=== PATIENT | male | born 2000 | race Hispanic/Latino ===

== ENCOUNTER 2022-11-20 06:17 | Emergency (ER) | payer SELFPAY ==
[2022-11-20] MEDS ORDERED: Fluorescein Opthalmic Strip ONE ×2 (08:13→08:17)
[2022-11-20] MEDS ORDERED: Proparacaine 0.5% Opth 15 ML BOT ONE (08:16)
== END 2022-11-20 09:11 | disposition home or self-care (01) ==
LOC: ERS 06:17
DX: H11.32 Conjunctival hemorrhage, left eye (principal)
CPT/HCPCS: 99283